=== PATIENT | male | born 1990 | race American Indian/Alaskan Native ===

== ENCOUNTER 2016-09-13 18:44 | Emergency (ER) | payer OTHER ==
[2016-09-13 19:18] VITALS: BP 138/84
--- NOTE | 2016-09-13 20:35 | Ultrasound Report ---
FINAL REPORT EXAM: US TESTICULAR DOPPLER COMP HISTORY: testicular pain TECHNIQUE: Ultrasound scrotum pulsed and color Doppler evaluation PRIORS: None. FINDINGS: Right testicle is 2.9 x 1.6 x 2.4 centimeters Left testicle is 3.9 x 2.3 x 3.4 centimeters Testicles demonstrate normal homogeneous echogenicity. There is normal vascular pulsed color Doppler evaluation Noted is a right epididymal cyst 1.0 centimeters. There is no evidence for hydrocele or varicocele IMPRESSION: 1 centimeter right epididymal cyst No additional abnormality identified
[2016-09-13] MEDS ORDERED: TORADOL IV ONE (20:53)
[2016-09-13] MEDS ORDERED: ZOFRAN IV ONE (20:53)
--- NOTE | 2016-09-13 20:58 | Emergency Department Report ---
HPI - General Chief Complaint: Urogenital-Male Time Seen by Provider: 09/13/16 20:16 - HPI HPI: Room 17 The patient is a 25-year-old male presenting with a chief complaint of right groin pain. Patient states his symptoms began at approximately 15:00-16:00 with pain in the right groin region. Patient states he also had low back pain that'll radiate into the right back. Patient states she became very nauseous but never vomited. Patient describes pain as throbbing in nature. Patient states the pain radiates to his right testicle. Patient denies any history of fever dysuria or hematuria. The patient currently gives his pain a score of 7.5 /10. Location: Right groin, see above Duration: [see above] Quality: Throbbing Severity: 7.5/10 Modifying factors: [see above] Context: [see above] Mode of transportation: The patient drove himself to the emergency department and there are no visitors present ED Past Medical Hx - Past Medical History Previous Medical History?: Yes Hx Asthma: Yes - Surgical History Past Surgical History?: No - Family History Family history: no significant - Social History Smoking Status: Never Smoker Substance Use Type: None (denies illicit drug use), Alcohol (occasional) - Medications Home Medications: Home Medications Medication Instructions Recorded Confirmed Last Taken Type HYDROcodone/APAP 5-325 [[place] 1 - 2 each PO Q6HR PRN #14 tablet 09/13/16 Unknown Rx 5/325] Ibuprofen [Motrin 800 MG tab] 800 mg PO Q8HR PRN #20 tablet 09/13/16 Unknown Rx Ondansetron [Zofran ODT TAB] 8 mg PO Q8HR #20 tab.rapdis 09/13/16 Unknown Rx Sulfamethoxazole/Trimethoprim 1 each PO BID #14 tablet 09/13/16 Unknown Rx [Bactrim DS TAB] ED Review of Systems ROS: Stated complaint: GROIN Other details as noted in HPI Comment: All other systems reviewed and negative Constitutional: denies: chills, fever Eyes: denies: eye pain, eye discharge, vision change ENT: denies: ear pain, throat pain Respiratory: denies: cough, shortness of breath, wheezing Cardiovascular: denies: chest pain, palpitations Endocrine: no symptoms reported Gastrointestinal: abdominal pain, nausea. denies: vomiting Genitourinary: testicular pain. denies: urgency, dysuria Musculoskeletal: back pain Skin: denies: rash, lesions Neurological: denies: headache, weakness, paresthesias Psychiatric: denies: anxiety, depression Hematological/Lymphatic: denies: easy bleeding, easy bruising Physical Exam - Physical Exam Vital Signs: Vital Signs 09/13/16 19:13 Temperature 99 F Pulse Rate 80 Respiratory 18 Rate Blood Pressure 138/84 O2 Sat by Pulse 100 Oximetry Physical Exam: GENERAL: The patient is well-developed well-nourished male lying on stretcher appearing to be in mild discomfort. [] HEENT: Normocephalic. Atraumatic. Extraocular motions are intact. Patient has moist mucous membranes. NECK: Supple. Trachea midline CHEST/LUNGS: Clear to auscultation. There is no respiratory distress noted. HEART/CARDIOVASCULAR: Regular. There is no tachycardia. There is no gallop rub or murmur. ABDOMEN: Abdomen is soft, nontender. Patient has normal bowel sounds. There is no abdominal distention. SKIN: There is no rash. There is no edema. There is no diaphoresis. NEURO: The patient is awake, alert, and oriented. The patient is cooperative. The patient has normal speech MUSCULOSKELETAL: There is no CVA tenderness. There is no evidence of acute injury. GENITOURINARY: No testicular masses palpated. Normal cremasteric reflex on the right. No inguinal fullness or scrotal masses detected ED Course Vital Signs 09/13/16 19:13 Temperature 99 F Pulse Rate 80 Respiratory 18 Rate Blood Pressure 138/84 O2 Sat by Pulse 100 Oximetry ED Medical Decision Making - Lab Data Result diagrams: 09/13/16 21:02 09/13/16 21:02 Laboratory Tests 09/13/16 09/13/16 09/13/16 21:02 21:02 21:53 WBC 7.1 RBC 5.02 Hgb 14.6 Hct 43.9 MCV 87 MCH 29 MCHC 33 RDW 13.1 L Plt Count 183 Lymph % (Auto) 14.2 Rice % (Auto) 10.9 H Eos % (Auto) 0.1 Baso % (Auto) 2.7 H Lymph # 1.0 L Rice # 0.8 Eos # 0.0 Baso # 0.2 H Seg Neutrophils % 72.1 H Seg Neutrophils # 5.1 Sodium 141 Potassium 4.2 Chloride 101.8 Carbon Dioxide 26 Anion Gap 17 BUN 12 Creatinine 0.9 Estimated GFR > 60 BUN/Creatinine Ratio 13.33 Glucose 90 Calcium 9.7 Urine Color Yellow Urine Turbidity Clear Urine pH 5.0 Ur Specific [place] 1.027 Urine Protein <15 mg/dl Urine Glucose (UA) Neg Urine Ketones Neg Urine Blood Neg Urine Nitrite Neg Urine Bilirubin Neg Urine Urobilinogen < 2.0 Ur Leukocyte Esterase Sm Urine WBC (Auto) 14.0 H Urine RBC (Auto) 2.0 U Epithel Cells (Auto) < 1.0 Urine Mucus Few - Radiology Data Radiology results: report reviewed (testicular Doppler, CT abdomen and pelvis), image reviewed (testicular Doppler, CT abdomen and pelvis) Testicular Doppler (read by radiologist)- 1 cm right epididymal cyst. No additional abnormality identified. Testicles demonstrate normal homogenous echogenicity. There is normal vascular pulse: Doppler evaluation. CT abdomen and pelvis (read by radiologist)-negative. No acute abdominal abnormality identified - Differential Diagnosis testicular torsion, renal colic, UTI, epididymitis, Critical care attestation.: If time is entered above; I have spent that time in minutes in the direct care of this critically ill patient, excluding procedure time. ED Disposition Clinical Impression: Right groin pain, UTI (urinary tract infection), Epididymal cyst Disposition: DC- TO HOME OR SELFCARE Is pt being admited?: No Does the pt Need Aspirin: No Condition: Stable Additional Instructions: Return to the emergency department immediately should you develop worsening symptoms, fever, inability to tolerate food or liquid or any other concerns. Prescriptions: HYDROcodone/APAP 5-325 [[place] 5/325] 1 - 2 each PO Q6HR PRN #14 tablet PRN Reason: Pain Ibuprofen [Motrin 800 MG tab] 800 mg PO Q8HR PRN #20 tablet PRN Reason: Pain Ondansetron [Zofran ODT TAB] 8 mg PO Q8HR #20 tab.rapdis Sulfamethoxazole/Trimethoprim [Bactrim DS TAB] 1 each PO BID #14 tablet Referrals: CATA GARCIA MD [Staff Physician] - [facility], [place] (Dr. Garcia is a urologist. Please follow up with him for further evaluation) Time of Disposition: 22:43
[2016-09-13 21:21] LABS: Basophils % (Auto) 2.7 % (0.0-1.8); Eosinophils % (Auto) 0.1 % (0.0-4.3); Hematocrit 43.9 % (35.5-45.6); Hemoglobin 14.6 gm/dl (11.8-15.2); Mean Corpuscular HGB Conc 33 % (32-34); Mean Corpuscular Hemoglobin 29 pg (28-32); Mean Corpuscular Volume 87 fl (84-94); Platelet Count 183 K/mm3 (140-440); Red Blood Count 5.02 M/mm3 (3.65-5.03); Red Cell Distribution Width 13.1 % (13.2-15.2); White Blood Count 7.1 K/mm3 (4.5-11.0)
[2016-09-13 21:30] LABS: Anion Gap 17 mmol/L; BUN/Creatinine Ratio 13.33; Blood Urea Nitrogen 12 mg/dL (9-20); Calcium 9.7 mg/dL (8.4-10.2); Carbon Dioxide 26 mmol/L (22-30); Chloride 101.8 mmol/L (98-107); Glucose 90 mg/dL (75-100); Potassium 4.2 mmol/L (3.6-5.0); Sodium 141 mmol/L (137-145)
--- NOTE | 2016-09-13 22:01 | Cat Scan Report ---
FINAL REPORT EXAM: CT ABDOMEN PELVIS WO CON HISTORY: right groin pain, nausea TECHNIQUE: CT abdomen and pelvis without contrast PRIORS: None. FINDINGS: No acute abnormality identified in the lung bases. No focal abnormality identified within the liver parenchyma. The spleen demonstrates normal size and attenuation. No pancreatic abnormalities seen. Kidneys demonstrate no evidence of hydronephrosis or nephrolithiasis. No ureteral calculus identified. The adrenal glands are unremarkable. Abdominal aorta is normal in caliber. No pathologically enlarged lymph nodes are identified. No signs of free fluid or free air No evidence of small bowel dilatation. The appendix is identified and is normal in size no adjacent inflammatory change seen. Urinary bladder is unremarkable. IMPRESSION: Negative. No acute abnormalities seen
[2016-09-13 22:27] LABS: Bilirubin,Urine NEG (Negative); Blood,Urine NEG (Negative); Ketones,Urine NEG (Negative); Leukocyte Esterase,Urine SM (Negative); Mucus,Urine FEW /HPF; Nitrite,Urine NEG (Negative); Protein,Urine <15 mg/dL mg/dL (Negative); Urobilinogen,Urine < 2.0 mg/dL (<2.0)
== END 2016-09-13 23:11 | disposition home or self-care (01) ==
LOC: ED 18:44
DX: N39.0 Urinary tract infection, site not specified (principal); N50.3 Cyst of epididymis; J45.909 Unspecified asthma, uncomplicated
CPT/HCPCS: 36415; 74176; 80048; 81001; 85025; 93975; 96374; 96375; 99284; J1885; J2405